=== PATIENT | male | born 1975 | race Hispanic/Latino ===

== ENCOUNTER 2020-06-23 12:12 | Emergency (ER) | payer BC ==
[~2020-06-23 12:12] MED LIST: Iopamidol 370 76% 100 ML VIAL ONE
[2020-06-23 12:59] LABS: #Basophils 0.1 thou/uL (0.0-0.2); #Eosinphils 0.2 thou/uL (0.0-0.7); #Lymphocytes 1.7 thou/uL (1.20-3.40); #Monocytes 0.3 thou/uL (0.11-0.59); #Neutrophils 3.8 thou/uL (1.40-6.50); %Basophils 0.9 % (0.0-1.0); %Eosinophils 2.6 % (0.0-10.0); %Lymphocytes 28.4 % (21.0-51.0); %Monocytes 4.8 % (0.0-10.0); %Neutrophils 63.4 % (42.0-75.0); Hemoglobin 15.1 g/dL (14.0-18.0); Mean Corpuscular HGB CONC 33.7 g/dL (32.0-36.0); Mean Corpuscular Hemoglobin 29.6 pg (27.0-31.0); Mean Platelet Volume 7.4 fL (7.4-10.4); Platelet Count 242 thou/uL (130-400); RBC Distribution Width 10.6 % (11.5-14.5); Red Blood Cell (RBC) Count 5.09 mill/uL (4.70-6.10)
[2020-06-23 13:14] LABS: ALT (SGPT) 36 U/L (8-55); AST (SGOT) 20 U/L (5-34); Albumin 3.7 g/dL (3.5-5.0); Alkaline Phosphatase 117 U/L (40-110); Anion Gap 14 mmol/L (10-20); BUN (Urea Nitrogen) 17 mg/dL (8.9-20.6); Bilirubin, Total 0.5 mg/dL (0.2-1.2); Calc. Creatinine Clearance 0 mL/min (70-130); Calcium 8.8 mg/dL (7.8-10.44); Carbon Dioxide 23 mmol/L (22-29); Chloride 102 mmol/L (98-107); Glucose 485 mg/dL (70-105); Lipase 66 U/L (8-78); Protein, Total 6.7 g/dL (6.0-8.3); Sodium 135 mmol/L (136-145)
[2020-06-23] MEDS ORDERED: Insulin Regular 300 UNITS/3 ML VIAL ONE (13:29)
[2020-06-23] MEDS ORDERED: Sodium Chloride 0.9% 1,000 ML ONE (13:29)
--- NOTE | 2020-06-23 14:15 | CT ---
CT ABDOMEN AND PELVIS WITH IV CONTRAST 06/23/2020 CLINICAL INFORMATION: Abdominal pain and diarrhea. COMPARISON: None. Technique: Multiple contiguous axial CT images are obtained through the abdomen and pelvis with IV contrast. Cor onal reformatted images are provided. FINDINGS: Lower Chest: There is pleural thickening seen along the posteromedial right lung base of uncertain et iology. Lung bases are otherwise clear. There is no pleural effusion identified. Vessels: Vascular calcifications are seen in the abdominal aorta. Normal aorta is normal in caliber. Abdomen: Portal vein:Patent Gallbladder: Within normal limits for CT imaging. Liver: within normal limits. Spleen: within normal limits. Pancreas: within normal limits. Adrenals: within normal limits. Kidneys: A fluid attenuation 1.3 cm hypodense lesion is seen in the inferior pole left kidney compati ble with a cyst. Kidneys otherwise demonstrate a normal CT appearance. Bowel: Small amount retained fecal material seen throughout the colon. Loops of small bowel are carlin l in caliber. Appendix: The appendix is visualized and normal in caliber. Peritoneum: No ascites or free air; no fluid collection. Mesentery and Retroperitoneum: No enlarged mesenteric or retroperitoneal lymph nodes. Abdominal Wall: within normal limits. Pelvis: Reproductive Organs: No pelvic masses. Bladder: Decompressed. Jiménez urinary bladder appear thickened, this is likely related to incomplete d istention. Bones: No suspicious lytic or sclerotic osseous lesions. IMPRESSION: 1. Incomplete imaging of a nonspecific area of pleural thickening along the posteromedial right lung base. Thinning on clinical concern, follow-up CT thorax may be helpful. 2. Left renal cyst. 3. No acute findings in the abdomen or pelvis.
[2020-06-23 14:22] LABS: Bilirubin Negative (Negative); Blood, Urine Small (Negative); Clarity Clear (Clear); Glucose, Urine (Dipstick) >=1000 mg/dL (Negative); Ketone, Urine Negative (Negative); Leukocyte Negative (Negative); Nitrite Negative (Negative); Protein, Urine (Dipstick) 100 mg/dL (Neg-Trace); Specific Gravity, Urine 1.015 (1.005-1.030)
[2020-06-23 14:28] LABS: RBC/HPF 0-3 HPF (0-3); Squamous Epithelial 0-3 HPF (0-3)
== END 2020-06-23 14:43 | disposition home or self-care (01) ==
LOC: NAV ERS 12:12
DX: R10.84 Generalized abdominal pain (principal); R19.7 Diarrhea, unspecified; E11.9 Type 2 diabetes mellitus without complications
CPT/HCPCS: 36416; 74177; 80053; 81003; 81015; 83690; 85025; 96372; J1815; J7050; Q9967